=== PATIENT | male | born 1995 | race Caucasian/White ===

== ENCOUNTER 2017-05-25 03:32 | Observation (INO) | payer OTHER ==
[2017-05-25] MEDS ORDERED: MIDAZOLAM 2 MG/2 ML SOL ONE (03:41)
[2017-05-25] MEDS ORDERED: ETOMIDATE 2 MG/ML SOL IV ONE (03:41)
[2017-05-25] MEDS ORDERED: KETAMINE HYDROCHLORIDE 50 MG/ML SOL ONE (03:41)
[2017-05-25] MEDS ORDERED: ROCURONIUM BROMIDE 10 MG/ML SOL IV ONE (03:44)
[2017-05-25] MEDS ORDERED: SODIUM CHLORIDE 0.9% 1000ML 1,000 ML IV ONE ×2 (04:00→05:27)
[2017-05-25 04:14] LABS: ALBUMIN 4.4 gm/dl (3.4-5.0); CALCIUM 8.7 mg/dl (8.5-10.1); MAGNESIUM 1.7 mg/dl (1.8-2.4)
[2017-05-25 04:20] LABS: HEMATOCRIT 43 % (39-53); MEAN CORPUSCULAR HGB CONC 37.4 gm/dl (32.0-36.0); MEAN CORPUSCULAR VOLUME 83 fL (80-100)
[2017-05-25 04:46] LABS: BASOPHILS % (MANUAL) 0 % (0-3); EOSINOPHILS % (MANUAL) 0 % (0-9); LYMPHOCYTES % (MANUAL) 36 % (10-50); NORMAL RBCS PRESENT
[2017-05-25] MEDS ORDERED: SODIUM CHLORIDE 0.9% FLUSH 10 ML SOL IV PRN (04:49)
[2017-05-25] MEDS ORDERED: THIAMINE 100 MG/ML 100 MG/ML SOL IV ONE (05:27)
[2017-05-25] MEDS ORDERED: MAGNESIUM SULFATE 1 GM/2 ML SOL IV ONE (05:27)
[2017-05-25] MEDS ORDERED: MAGNESIUM SULFATE 5 GM/10 ML SOL ONE (05:31)
[2017-05-25] MEDS ORDERED: THIAMINE 100 MG/ML 100 MG/ML SOL ONE (05:31)
[2017-05-25] MEDS ORDERED: POTASSIUM CHLORIDE 2 MEQ/ML SOL IV SCH (06:00)
[2017-05-25 06:20] VITALS: RESP 16
[2017-05-25] MEDS: POTASSIUM CHLORIDE 10 MEQ TER PO SCH ×3 (06:58→12:12)
[2017-05-25 07:33] LABS: APPEARANCE,URINE Clear; BILIRUBIN,URINE NEGATIVE (NEGATIVE); COLOR,URINE Yellow; GLUCOSE, URINE (UA) NEGATIVE (NEGATIVE); KETONES,URINE NEGATIVE (NEGATIVE); LEUKOCYTE ESTERASE ,URINE NEGATIVE (NEGATIVE); NITRATE,URINE NEGATIVE (NEGATIVE); OCCULT BLOOD,URINE NEGATIVE (NEG-TRACE); UROBILINOGEN,URINE 0.2 (0.2-1.0 EU)
[2017-05-25 07:48] LABS: AMPHETAMINES NEGATIVE (NEGATIVE); METHADONE NEGATIVE (NEGATIVE); OPIATES(OP13) NEGATIVE (NEGATIVE); OXYCODONE(OXY) NEGATIVE (NEGATIVE); PROPOXYPHENE(PPX) NEGATIVE (NEGATIVE); RBC,URINE NEG (0-3AV/HPF); TRICYCLIC ANTIDEPRESSANTS NEGATIVE (NEGATIVE); WBC,URINE NEG (0-5AV/HPF)
[2017-05-25 10:38] VITALS: BP 149/96; PULSE 97; TEMP 97.8; O2SAT 100
[2017-05-25] MEDS ORDERED: ACETAMINOPHEN 325 MG PO PRN (10:56)
[2017-05-25] MEDS ORDERED: PEG-400/PROPYLENE GLYCOL 1 DROP SOL EACHEYE PRN (10:59)
== END 2017-05-25 12:28 | disposition home or self-care (01) | DRG 897 ==
LOC: ED 03:32 → ACUTE CARE 05:37
PROVIDERS: ADMIT Family Medicine; ATTEND Emergency Medicine
DX: F10.129 Alcohol abuse with intoxication, unspecified (principal); Z04.1 Encounter for examination and observation following transport accident; Y90.6 Blood alcohol level of 120-199 mg/100 ml; V47.5XXA Car driver injured in collision with fixed or stationary object in traffic accident, initial encounter
CPT/HCPCS: 70450; 71010; 72070; 72120; 72125; 80053; 80305; 80307; 81001; 83735; 84100; 85007; 85027; 85610; 93012; 99285; J2250; J3475